=== PATIENT | female | born 2000 | race Caucasian/White ===

== ENCOUNTER 2024-05-16 21:26 | Emergency (ER) | payer MEDICAID ==
[~2024-05-16] VITALS: Ht 152.4 cm; Wt 93.0 kg
[2024-05-16 21:44] VITALS: O2SAT 100
[2024-05-16 22:26] VITALS: BP 127/86; PULSE 94; RESP 16; TEMP 98.3; O2SAT 99
[2024-05-17] MEDS ORDERED: IBUP-2029 MT (00:05)
[2024-05-17] MEDS ORDERED: AMOX-494 MT (00:05)
[2024-05-17] MEDS: KETOROLAC 15MG/ML VIAL IM ONE (00:30)
== END 2024-05-17 00:37 | disposition home or self-care (01) ==
LOC: ER 21:26
DX: K08.89 Other specified disorders of teeth and supporting structures (principal); L08.9 Local infection of the skin and subcutaneous tissue, unspecified; E11.9 Type 2 diabetes mellitus without complications; F19.90 Other psychoactive substance use, unspecified, uncomplicated; Z98.890 Other specified postprocedural states
CPT/HCPCS: 81025; 99283; 96372; J1885; Z7610

== ENCOUNTER 2024-07-19 13:33 | Emergency (ER) | payer MEDICAID ==
[~2024-07-19] VITALS: Ht 167.6 cm; Wt 80.0 kg
[~2024-07-19 13:33] MED LIST: AMOX-494 MT; IBUP-2029 MT
[2024-07-19 13:36] VITALS: O2SAT 98
[2024-07-19 13:46] VITALS: BP 126/85; PULSE 97; RESP 18; TEMP 37.2; O2SAT 98
[2024-07-19] MEDS ORDERED: AMOX1TAB16 PO (14:02)
[2024-07-19] MEDS ORDERED: IBUP-2030 PO (14:02)
== END 2024-07-19 14:17 | disposition home or self-care (01) ==
LOC: ER 13:33
DX: K04.7 Periapical abscess without sinus (principal); E11.9 Type 2 diabetes mellitus without complications; Z79.1 Long term (current) use of non-steroidal anti-inflammatories (NSAID); Z79.899 Other long term (current) drug therapy
CPT/HCPCS: 99283

== ENCOUNTER 2024-09-25 15:06 | Emergency (ER) | payer MEDICAID ==
[~2024-09-25] VITALS: Ht 162.6 cm; Wt 90.0 kg
[~2024-09-25 15:06] MED LIST changes: +AMOX1TAB16 PO; +IBUP-2030 PO
[2024-09-25 15:08] VITALS: O2SAT 97
[2024-09-25 15:10] VITALS: BP 115/78; PULSE 100; RESP 18; TEMP 36.9; O2SAT 99
[2024-09-25] MEDS ORDERED: AMOX1TAB16 PO (15:39)
[2024-09-25] MEDS: TETANUS, DIPHTHERIA, PERTUSSIS VAC/PF 0.5ML (>10YR OLD) IM ONE (15:57)
== END 2024-09-25 15:59 | disposition home or self-care (01) ==
LOC: ER 15:06
DX: S51.052A Open bite, left elbow, initial encounter (principal); E11.9 Type 2 diabetes mellitus without complications; Z59.00 Homelessness unspecified; Z98.890 Other specified postprocedural states; W54.0XXA Bitten by dog, initial encounter; Y93.89 Activity, other specified; Y92.89 Other specified places as the place of occurrence of the external cause; Y99.8 Other external cause status
CPT/HCPCS: 90471; 90715; 99283